=== PATIENT | female | born 1960 | race Caucasian/White ===

== ENCOUNTER 2018-06-23 08:32 | Emergency (ER) | payer OTHER ==
[2018-06-23] MEDS: ASPIRIN 81 MG TAB PO ×2 (09:21→09:34)
[2018-06-23 09:29] LABS: ADD MAN DIFF? NO
[2018-06-23 09:33] LABS: WHITE BLOOD COUNT 7.8 10^3/ul (4.8-10.8)
[2018-06-23 09:33] LABS: BASOPHILS % 0.5 % (0.0-2.0); EOSINOPHILS # 0.4 10^3/ul (0.0-0.5); EOSINOPHILS % 4.6 % (0.0-7.0); HEMATOCRIT 44.5 % (37.0-47.0); HEMOGLOBIN 14.3 g/dl (12.0-16.0); LYMPHOCYTES # 4.2 10^3/ul (0.8-2.9); LYMPHOCYTES % 53.7 % (15.0-51.0); MEAN CORPUSCULAR HEMOGLOBIN 29.4 pg (29.0-33.0); MEAN CORPUSCULAR HGB CONC 32.1 g/dl (32.0-37.0); MEAN CORPUSCULAR VOLUME 91.4 fl (82.0-101.0); MEAN PLATELET VOLUME 10.5 fl (7.4-10.4); MONOCYTE # 0.6 10^3/ul (0.3-0.9); NEUTROPHIL # 2.6 10^3/ul (1.6-7.5); NEUTROPHILS % 33.1 % (39.0-77.0); PLATELET COUNT 218 10^3/UL (140-415); RED BLOOD COUNT 4.87 10^6/ul (4.20-5.40); RED CELL DISTRIBUTION WIDTH 13.2 % (11.5-14.5)
[2018-06-23] MEDS: SOD CHLORIDE 0.9% 500 ML IV (09:33)
[2018-06-23 09:54] LABS: ALANINE AMINOTRANSFERASE 51 IU/L (13-69); ALBUMIN 4.3 g/dl (3.3-4.9); ALBUMIN/GLOBULIN RATIO 1.16; ALKALINE PHOSPHATASE 111 IU/L (42-121); ANION GAP 14 (5-13); ASPARTATE AMINO TRANSFERASE 55 IU/L (15-46); BILIRUBIN,INDIRECT 0.4 mg/dl (0-1.1); BILIRUBIN,TOTAL 0.4 mg/dl (0.2-1.3); BLOOD UREA NITROGEN 11 mg/dl (7-20); CALCIUM 9.6 mg/dl (8.4-10.2); CARBON DIOXIDE 28 mmol/L (21-31); CHLORIDE 101 mmol/L (97-110); CREATININE 0.52 mg/dl (0.44-1.00); Estimated GFR > 60 mL/min (>60); GLUCOSE 145 mg/dl (70-220); LIPASE 50 U/L (23-300); POTASSIUM 3.7 mmol/L (3.5-5.1); SODIUM 143 mmol/L (135-144)
[2018-06-23 10:05] LABS: TROPONIN-I < 0.012 ng/ml (0.000-0.120)
[2018-06-23 10:43] LABS: ADD UMIC YES; UR ASCORBIC ACID NEGATIVE (NEGATIVE); UR BACTERIA FEW /HPF (NONE SEEN); UR BILIRUBIN (Dip) NEGATIVE (NEGATIVE); UR BLOOD (Dip) NEGATIVE (NEGATIVE); UR CLARITY SLIGHTLY CLOUDY (CLEAR); UR COLOR YELLOW (YELLOW); UR GLUCOSE (Dip) NEGATIVE (NEGATIVE); UR KETONES (Dip) NEGATIVE (NEGATIVE); UR LEUKOCYTE ESTERASE (Dip) TRACE Leu/ul (NEGATIVE); UR NITRITE (Dip) NEGATIVE (NEGATIVE); UR RBC 2 /HPF (0-5); UR SPECIFIC GRAVITY (Dip) 1.003 (1.003-1.030); UR SQUAMOUS EPITHELIAL CELL MODERATE /HPF (FEW); UR TOTAL PROTEIN (Dip) NEGATIVE (NEGATIVE); UR UROBILINOGEN (Dip) NEGATIVE (NEGATIVE); UR WBC 9 /HPF (0-5)
[2018-06-23] MEDS: LORAZEPAM 0.5 MG TAB PO (11:48)
[2018-06-23] MEDS: CEFTRIAXONE 1 GM/50 ML (PMX) 50 ML IVPB (11:53)
[2018-06-23] MEDS ORDERED: NICOTINE (21 MG/24 HR) PATCH TRANSDERM (14:30)
== END 2018-06-23 14:10 | disposition left against medical advice (07) ==
LOC: E/R 08:32
DX: I10 Essential (primary) hypertension (principal); R07.9 Chest pain, unspecified
CPT/HCPCS: 36415; 71045; 80053; 81001; 83690; 84484; 85025; 96374; 99284-25

== ENCOUNTER 2018-08-05 04:05 | Observation (INO) | payer OTHER ==
[2018-08-05] MEDS: NITROGLYCERIN 2% 1 GM OINT PKT TD (04:51)
[2018-08-05] MEDS: ASPIRIN 325 MG TAB PO (04:51)
[2018-08-05 04:57] LABS: ADD MAN DIFF? NO
[2018-08-05 05:01] LABS: WHITE BLOOD COUNT 8.6 10^3/ul (4.8-10.8)
[2018-08-05 05:01] LABS: BASOPHIL # 0.1 10^3/ul (0.0-0.1); BASOPHILS % 0.9 % (0.0-2.0); EOSINOPHILS # 0.3 10^3/ul (0.0-0.5); EOSINOPHILS % 3.3 % (0.0-7.0); HEMATOCRIT 44.7 % (37.0-47.0); HEMOGLOBIN 14.7 g/dl (12.0-16.0); LYMPHOCYTES # 4.1 10^3/ul (0.8-2.9); MEAN CORPUSCULAR HEMOGLOBIN 29.6 pg (29.0-33.0); MEAN CORPUSCULAR HGB CONC 32.9 g/dl (32.0-37.0); MEAN CORPUSCULAR VOLUME 89.9 fl (82.0-101.0); MEAN PLATELET VOLUME 10.4 fl (7.4-10.4); MONOCYTE # 0.6 10^3/ul (0.3-0.9); MONOCYTES % 7.5 % (0.0-11.0); NEUTROPHIL # 3.4 10^3/ul (1.6-7.5); NEUTROPHILS % 40.1 % (39.0-77.0); PLATELET COUNT 220 10^3/UL (140-415); RED BLOOD COUNT 4.97 10^6/ul (4.20-5.40); RED CELL DISTRIBUTION WIDTH 13.3 % (11.5-14.5)
[2018-08-05 05:22] LABS: ANION GAP 9 (5-13); BLOOD UREA NITROGEN 12 mg/dl (7-20); CALCIUM 9.9 mg/dl (8.4-10.2); CARBON DIOXIDE 27 mmol/L (21-31); CHLORIDE 105 mmol/L (97-110); CREATININE 0.57 mg/dl (0.44-1.00); Estimated GFR > 60 mL/min (>60); GLUCOSE 108 mg/dl (70-220); POTASSIUM 3.7 mmol/L (3.5-5.1); SODIUM 141 mmol/L (135-144)
[2018-08-05 05:34] LABS: TROPONIN-I < 0.012 ng/ml (0.000-0.120)
[2018-08-05] MEDS ORDERED: ONDANSETRON 4 MG INJ IV ×2 (06:00→06:30)
[2018-08-05] MEDS ORDERED: ACETAMINOPHEN 325 MG TAB PO ×2 (06:00→06:30)
[2018-08-05] MEDS ORDERED: NITROGLYCERIN (SL) 0.4 MG TAB SL (06:30)
[2018-08-05] MEDS ORDERED: DOCUSATE SODIUM 100 MG CAP PO (06:30)
[2018-08-05] MEDS ORDERED: NACL 0.9% 3 ML SYG IV (06:30)
[2018-08-05] MEDS ORDERED: BISACODYL (EC) 5 MG TAB PO (06:30)
[2018-08-05] MEDS ORDERED: morphine 2 MG INJ IV (06:30)
[2018-08-05 07:00] LABS: HEMOGLOBIN A1C 5.9 % (0-5.9)
[2018-08-05 07:32] LABS: MAGNESIUM 1.9 mg/dl (1.7-2.5)
[2018-08-05 07:32] LABS: CHOL/HDL RATIO 6.8 RATIO; CHOLESTEROL 248 mg/dl (100-200); HDL CHOLESTEROL 36 mg/dl (37-92); LDL CHOLESTEROL,CALCULATED 176 mg/dl; TRIGLYCERIDES 181 mg/dl (0-149)
[2018-08-05] MEDS: METOPROLOL 50 MG TAB PO ×2 (08:18→20:12)
[2018-08-05] MEDS: SERTRALINE 50 MG TAB PO (08:18)
[2018-08-05] MEDS: AMLODIPINE 2.5 MG TAB PO (08:24)
[2018-08-05 11:24] LABS: CREATINE KINASE 42 IU/L (23-200)
[2018-08-05 11:34] LABS: CK INDEX 0.6; CK-MB 0.24 ng/ml (0.0-2.4); TROPONIN-I < 0.012 ng/ml (0.000-0.120)
[2018-08-05] MEDS: ALPRAZOLAM 0.5 MG TAB PO ×2 (12:03→21:20)
[2018-08-05 18:35] LABS: CREATINE KINASE 49 IU/L (23-200)
[2018-08-05 18:48] LABS: CK INDEX 0.6; CK-MB 0.27 ng/ml (0.0-2.4); TROPONIN-I < 0.012 ng/ml (0.000-0.120)
[2018-08-06] MEDS: traZODone 50 MG TAB PO (01:36)
[2018-08-06 06:44] LABS: ADD MAN DIFF? NO
[2018-08-06 06:47] LABS: BASOPHIL # 0.1 10^3/ul (0.0-0.1); BASOPHILS % 0.8 % (0.0-2.0); EOSINOPHILS # 0.2 10^3/ul (0.0-0.5); HEMATOCRIT 44.3 % (37.0-47.0); HEMOGLOBIN 14.5 g/dl (12.0-16.0); LYMPHOCYTES # 3.8 10^3/ul (0.8-2.9); LYMPHOCYTES % 47.4 % (15.0-51.0); MEAN CORPUSCULAR HEMOGLOBIN 29.6 pg (29.0-33.0); MEAN CORPUSCULAR HGB CONC 32.7 g/dl (32.0-37.0); MEAN CORPUSCULAR VOLUME 90.4 fl (82.0-101.0); MEAN PLATELET VOLUME 10.6 fl (7.4-10.4); MONOCYTE # 0.7 10^3/ul (0.3-0.9); MONOCYTES % 8.7 % (0.0-11.0); NEUTROPHIL # 3.2 10^3/ul (1.6-7.5); NEUTROPHILS % 39.8 % (39.0-77.0); PLATELET COUNT 188 10^3/UL (140-415); RED CELL DISTRIBUTION WIDTH 13.2 % (11.5-14.5)
[2018-08-06 07:38] LABS: ALANINE AMINOTRANSFERASE 70 IU/L (13-69); ALBUMIN 4.2 g/dl (3.3-4.9); ALKALINE PHOSPHATASE 96 IU/L (42-121); ANION GAP 8 (5-13); ASPARTATE AMINO TRANSFERASE 49 IU/L (15-46); BILIRUBIN,INDIRECT 0.6 mg/dl (0-1.1); BILIRUBIN,TOTAL 0.6 mg/dl (0.2-1.3); BLOOD UREA NITROGEN 11 mg/dl (7-20); CALCIUM 10.1 mg/dl (8.4-10.2); CARBON DIOXIDE 31 mmol/L (21-31); CHLORIDE 106 mmol/L (97-110); CREATININE 0.59 mg/dl (0.44-1.00); Estimated GFR > 60 mL/min (>60); GLUCOSE 105 mg/dl (70-220); POTASSIUM 4.2 mmol/L (3.5-5.1); SODIUM 145 mmol/L (135-144)
[2018-08-06] MEDS: SERTRALINE 50 MG TAB PO (08:07)
[2018-08-06] MEDS: AMLODIPINE 2.5 MG TAB PO (08:08)
[2018-08-06] MEDS: METOPROLOL 50 MG TAB PO (08:11)
[2018-08-06] MEDS: ALPRAZOLAM 0.5 MG TAB PO (11:50)
[2018-08-06] MEDS ORDERED: ATORVASTATIN 10 MG TAB PO (21:00)
== END 2018-08-06 13:45 | disposition home or self-care (01) ==
LOC: E/R 04:05 → TEL 06:01
DX: R07.9 Chest pain, unspecified (principal); I16.0 Hypertensive urgency; I10 Essential (primary) hypertension; F41.9 Anxiety disorder, unspecified; Z72.0 Tobacco use; E66.9 Obesity, unspecified; Z68.41 Body mass index [BMI] 40.0-44.9, adult; G47.00 Insomnia, unspecified
CPT/HCPCS: 36415; 71045; 80048; 80053; 80061; 82550; 82553; 83036; 83735; 84443; 84484; 85025; 93005; 93306; 99285-25; G0378

== ENCOUNTER 2018-08-16 05:16 | Emergency (ER) | payer OTHER | END 2018-08-16 08:57 | disposition home or self-care (01) | LOC: E/R 05:16 | DX: F41.9 Anxiety disorder, unspecified (principal); I10 Essential (primary) hypertension; Z87.891 Personal history of nicotine dependence | CPT/HCPCS: 99282; Z7502 ==